=== PATIENT | female | born 1940 | race Caucasian/White ===

== ENCOUNTER 2020-07-07 16:06 | Emergency (ER) | payer OTHER ==
[~2020-07-07 16:06] MED LIST: 8 HOUR650 MG PO; AMLODIPINE-BEN1 EACH PO; ASPIRIN EC81 MG PO; BYSTOLIC10 MG PO; COMPLEX B-1001 EACH PO; ISOSORBIDE MONO60 MG PO; LOVAZA1 GM PO; NEURONTIN400 MG PO; NORCO 5-325 TA1 EACH PO; PRESERVISION A1 EACH PO; VENLAFAXINE HCL75 MG PO; VITAMIN D1000 UNI1 PO
[2020-07-07 18:44] LABS: BASOPHIL 0.4 % (0-2); EOSINOPHIL 2.5 % (0-7); HGB 12.3 g/dl (12.5-16.0); LYMPHOCYTE 23.5 % (15-48); MCH 28.7 pg (25.0-31.0); MCHC 31.5 g/dL (32.0-36.0); MCV 90.9 fL (78.0-100.0); MONOCYTE 8.7 % (0-12); MPV 9.1 fL (6.0-9.5); NEUTROPHIL 64.7 % (41-80); NRBC 0; PLT 290 K/uL (150-400); RBC 4.29 M/uL (4.20-5.40); RDW 13.9 % (11.5-14.0); WBC 8.4 K/uL (4.0-10.5)
[2020-07-07 19:08] LABS: PTT 41.7 SECONDS (22.2-34.7)
[2020-07-07 19:09] LABS: INR 1.14 (0.9-1.2); PROTHROMBIN TIME 13.9 SECONDS (11.4-13.6)
[2020-07-07 19:10] LABS: ALBUMIN 2.4 g/dL (3.4-5.0); BILIRUBIN - TOTAL 0.5 mg/dL (0.2-1.0); BUN/CREAT RATIO (CALC) 25.5 RATIO; CREATININE 1.1 mg/dL (0.51-0.95); GLOBULIN (CALCULATION) 3.6 g/dL; POTASSIUM 3.6 mmol/L (3.5-5.1)
[2020-07-07 19:17] LABS: D-DIMER 1.42 ug/mLFEU (0.00-0.41)
[2020-07-07 21:18] LABS: BILIRUBIN NEGATIVE (NEGATIVE); BLOOD NEGATIVE Ery/uL (NEGATIVE); CLARITY CLEAR (CLEAR); COLOR YELLOW (YELLOW); GLUCOSE (U) NORMAL (NORMAL); LEUKOCYTES NEGATIVE Leu/uL (NEGATIVE); NITRITE NEGATIVE (NEGATIVE); PROTEIN NEGATIVE (NEGATIVE); UROBILINOGEN 0.2 mg/dL (0.2-1.0); pH 5.5 (5.0-9.0)
== END 2020-07-07 22:21 | disposition home or self-care (01) ==
LOC: FER 16:06
PROVIDERS: Emergency Medicine
DX: R07.89 Other chest pain (principal); I25.10 Atherosclerotic heart disease of native coronary artery without angina pectoris; E11.9 Type 2 diabetes mellitus without complications; Z88.0 Allergy status to penicillin
CPT/HCPCS: 36415; 71275; 80053; 81003; 84484; 85025; 85379; 85610; 85730; 93005; J1170; J2405; J7030; Q9967

== ENCOUNTER 2020-11-21 14:55 | Emergency (ER) | payer OTHER ==
[2020-11-21 16:57] LABS: BASOPHIL 0.5 % (0-2); EOSINOPHIL 2.3 % (0-7); HCT 37.6 % (37.0-47.0); LYMPHOCYTE 22.2 % (15-48); MCH 30.1 pg (25.0-31.0); MCHC 31.9 g/dL (32.0-36.0); MCV 94.2 fL (78.0-100.0); MONOCYTE 11.5 % (0-12); NEUTROPHIL 63.3 % (41-80); NRBC 0; PLT 311 K/uL (150-400); RBC 3.99 M/uL (4.20-5.40); WBC 6.4 K/uL (4.0-10.5)
[2020-11-21 17:16] LABS: ALBUMIN 2.9 g/dL (3.4-5.0); BILIRUBIN - TOTAL 0.2 mg/dL (0.2-1.0); BUN/CREAT RATIO (CALC) 16.2 RATIO; CREATININE 1.17 mg/dL (0.51-0.95); GLOBULIN (CALCULATION) 4.8 g/dL; POTASSIUM 4.4 mmol/L (3.5-5.1); TOTAL PROTEIN 7.7 g/dL (6.4-8.2)
[2020-11-21 19:21] LABS: BILIRUBIN NEGATIVE (NEGATIVE); BLOOD NEGATIVE Ery/uL (NEGATIVE); CLARITY CLEAR (CLEAR); COLOR YELLOW (YELLOW); GLUCOSE (U) NORMAL (NORMAL); LEUKOCYTES TRACE Leu/uL (NEGATIVE); NITRITE NEGATIVE (NEGATIVE); PROTEIN 2+ mg/dL (NEGATIVE); UROBILINOGEN 0.2 mg/dL (0.2-1.0)
[2020-11-21 19:30] LABS: BACTERIA TRACE
== END 2020-11-21 20:20 | disposition home or self-care (01) ==
LOC: FER 14:55
PROVIDERS: Emergency Medicine
DX: E86.0 Dehydration (principal); I11.0 Hypertensive heart disease with heart failure; I50.9 Heart failure, unspecified; E11.9 Type 2 diabetes mellitus without complications; K21.9 Gastro-esophageal reflux disease without esophagitis; Z85.43 Personal history of malignant neoplasm of ovary; Z88.0 Allergy status to penicillin; Z79.899 Other long term (current) drug therapy; Z79.82 Long term (current) use of aspirin
CPT/HCPCS: 36415; 71045; 80053; 81001; 84484; 85025; 93005